=== PATIENT | female | born 1950 | race Caucasian/White ===

== ENCOUNTER 2018-04-17 08:25 | Outpatient (CLI) | payer BC | END 2018-04-17 08:26 | disposition home or self-care (01) | LOC: BICMAMMO 08:25 | PROVIDERS: ATTEND Internal Medicine | DX: Z12.31 Encounter for screening mammogram for malignant neoplasm of breast (principal); Z80.3 Family history of malignant neoplasm of breast | CPT/HCPCS: 77063; 77067 ==

== ENCOUNTER 2019-04-18 12:47 | Outpatient (CLI) | payer MEDICARE, BC ==
--- NOTE | 2019-04-18 14:03 | MMO ---
Bilateral MAMMO Bilat Screen [facility]. CLINICAL HISTORY: Patient is 68 years old and is seen for screening. The patient has the following family history of breast cancer: mother, malignant (generic). The patient has no personal history of cancer. VIEWS: The views performed were: bilateral craniocaudal with tomosynthesis and bilateral mediolateral oblique with tomosynthesis. FILMS COMPARED: The present examination has been compared to prior imaging studies performed at [facility] on 04/12/2015, 04/13/2016, 04/16/2017 and 04/17/2018. MAMMOGRAM FINDINGS: The breasts are heterogeneously dense, which could obscure a lesion on mammography. There are stable benign appearing calcifications seen in both breasts. There are no suspicious masses, suspicious calcifications, or new areas of architectural distortion. IMPRESSION: THERE IS NO MAMMOGRAPHIC EVIDENCE OF MALIGNANCY. A ROUTINE FOLLOW-UP MAMMOGRAM IN 1 YEAR IS RECOMMENDED. THE RESULTS OF THIS EXAM WERE SENT TO THE PATIENT. ACR BI-RADS Category 2 - Benign finding MAMMOGRAPHY NOTE: 1. A negative mammogram report should not delay a biopsy if a dominant of clinically suspicious mass is present. 2. Approximately 10% to 15% of breast cancers are not detected by mammography. 3. Adenosis and dense breasts may obscure an underlying neoplasm.
--- NOTE | 2019-04-18 14:51 | BD ---
DEXA BONE DENSITY STUDY: HISTORY: Postmenopausal screening. COMPARISON: 04/26/2015. FINDINGS: Lumbar Spine: BMD (g/cm2) L1 0.838 T-Score: -1.4 L2 0.900 T-Score: -1.2 L3 0.887 T-Score: -1.8 L4 1.002 T-Score: -0.5 L1-L4 0.912 T-Score: -1.2 Evidence for osteopenia with increased risk for fracture. Bone mineral density has improved from 04/26 at which time T-score was -1.7. Left Hip: Femoral Neck: 0.756 T-Score: -0.8 Total Femur: 0.831 T-Score: -0.9 Within normal limits with no increased risk for fracture, bone mineral density has improved from 2014 at which time T-score was -1.2 FRAX SCORE: Major osteoporotic fracture 9.2%, hip fracture 0.9%. POS: [facility]
== END 2019-04-18 12:48 | disposition home or self-care (01) ==
LOC: BICMAMMO 12:47
PROVIDERS: ATTEND Internal Medicine
DX: Z12.31 Encounter for screening mammogram for malignant neoplasm of breast (principal); M85.89 Other specified disorders of bone density and structure, multiple sites; Z80.3 Family history of malignant neoplasm of breast
CPT/HCPCS: 77063; 77067; 77080